=== PATIENT | female | born 1990 | race Two or more races ===

== ENCOUNTER 2024-07-18 10:57 | Outpatient (RCR) | payer MEDICAID, SELFPAY ==
--- NOTE | 2024-07-03 11:07 | XR_ITS ---
Examination: Biophysical profile, ultrasound Date and time of exam: July 03, 2024 1112 hours INDICATIONS: Diagnosis gestational diabetes Technique: Multiple transabdominal sonographic images of the pelvis abdomen obtained. Attention is directed to the breathing movement, gross body movement, amniotic fluid volume and tone. Findings: Amniotic fluid index 10.5 cm Total biophysical profile is 8 of 8. breathing movement is 2. Gross body movement is 2. tone is 2. Qualitative amniotic fluid volume is 2 Impression: Biophysical profile is 8 of 8.
[2024-07-03 11:46] VITALS: BP 116/59; PULSE 85; RESP 16; TEMP 36.8
--- NOTE | 2024-07-08 10:49 | XR_ITS ---
Examination: Biophysical profile, ultrasound Date and time of exam: July 08, 2024 1102 hours INDICATIONS: Diagnosis gestational diabetes Technique: Multiple transabdominal sonographic images of the pelvis abdomen obtained. Attention is directed to the breathing movement, gross body movement, amniotic fluid volume and tone. Findings: Amniotic fluid index 7.8 cm Total biophysical profile is 8 of 8. breathing movement is 2. Gross body movement is 2. tone is 2. Qualitative amniotic fluid volume is 2 Impression: Biophysical profile is 8 of 8.
[2024-07-08 11:25] VITALS: BP 117/57; PULSE 81; RESP 16; TEMP 36.7
--- NOTE | 2024-07-11 10:54 | XR_ITS ---
Examination: Biophysical profile, ultrasound Date and time of exam: July 11, 2024 1108 hours INDICATIONS: Diagnosis gestational diabetes Technique: Multiple transabdominal sonographic images of the pelvis abdomen obtained. Attention is directed to the breathing movement, gross body movement, amniotic fluid volume and tone. Findings: Amniotic fluid index 11.2 cm Total biophysical profile is 8 of 8. breathing movement is 2. Gross body movement is 2. tone is 2. Qualitative amniotic fluid volume is 2 Impression: Biophysical profile is 8 of 8.
[2024-07-11 11:30] VITALS: BP 114/61; PULSE 73; RESP 16; TEMP 36.8
--- NOTE | 2024-07-15 10:59 | XR_ITS ---
Examination: Biophysical profile, ultrasound Date and time of exam: July 15, 2024 1115 hours INDICATIONS: Diagnosis gestational diabetes Technique: Multiple transabdominal sonographic images of the pelvis abdomen obtained. Attention is directed to the breathing movement, gross body movement, amniotic fluid volume and tone. Findings: Amniotic fluid index 7.8 cm Total biophysical profile is 8 of 8. breathing movement is 2. Gross body movement is 2. tone is 2. Qualitative amniotic fluid volume is 2 Impression: Biophysical profile is 8 of 8.
--- NOTE | 2024-07-18 11:01 | XR_ITS ---
Examination: Biophysical profile, ultrasound Date and time of exam: July 18, 2024 1108 hours INDICATIONS: Diagnosis gestational diabetes Technique: Multiple transabdominal sonographic images of the pelvis abdomen obtained. Attention is directed to the breathing movement, gross body movement, amniotic fluid volume and tone. Findings: Amniotic fluid index 8.1 cm Total biophysical profile is 8 of 8. breathing movement is 2. Gross body movement is 2. tone is 2. Qualitative amniotic fluid volume is 2 Impression: Biophysical profile is 8 of 8.
[2024-07-18 11:29] VITALS: BP 108/54; PULSE 72; RESP 16; TEMP 36.7
== END 2024-07-18 23:59 | disposition home or self-care (01) ==
LOC: S4S1 10:57
PROVIDERS: Referring Provider Student in an Organized Health Care Education/Training Program; Visit Provider Student in an Organized Health Care Education/Training Program
DX: O24.414 Gestational diabetes mellitus in pregnancy, insulin controlled (principal); Z3A.39 39 weeks gestation of pregnancy
CPT/HCPCS: 59025; 76819